=== PATIENT | male | born 1985 | race Caucasian/White ===

== ENCOUNTER 2016-10-08 20:18 | Emergency (ER) | payer OTHER ==
[~2016-10-08] VITALS: Ht 189.2 cm; Wt 126.5 kg
[~2016-10-08 20:18] MED LIST: AMPH30TA2 PO
[2016-10-08 20:26] VITALS: TEMP 36.9; Ht 189.2 cm; Wt 126.5 kg
[2016-10-08] MEDS ORDERED: SODIUM CHLORIDE 0.9% 1000ML 1,000 ML IV STA (20:38)
[2016-10-08] MEDS ORDERED: ONDANSETRON INJ 2 MG/ML 2 ML VIAL IV STA (20:38)
[2016-10-08] MEDS ORDERED: AMPH20CA3 PO (20:50)
[2016-10-08 20:56] LABS: HEMATOCRIT 44.9 % (42-52); MEAN CELL VOLUME 81.5 fL (80-100); MEAN CORPUSCULAR HEMOGLOBIN 28.7 pg (25-34); MEAN CORPUSCULAR HGB CONC 35.2 g/dl (32-36); MEAN PLATELET VOLUME 10.2 fL (7.4-10.4); PLATELET COUNT 254 K/uL (130-400); RED BLOOD COUNT 5.51 M/uL (4.7-6.1); WHITE BLOOD COUNT 8.22 K/uL (4.8-10.8)
[2016-10-08] MEDS ORDERED: HYOSCYAMINE SULFATE 0.125 MG SL TAB SL STA (21:08)
[2016-10-08 21:13] LABS: ALT/SGPT 49 U/L (12-78); BLOOD UREA NITROGEN 9 mg/dl (7-18); BUN/CREATININE RATIO 11.1 (10-20); CARBON DIOXIDE 28 mmol/L (21-32); CHLORIDE 103 mmol/L (98-107); CREATININE 0.83 mg/dl (0.60-1.40); GLUCOSE 84 mg/dl (70-99); POTASSIUM 3.4 mmol/L (3.5-5.1); SODIUM 138 mmol/L (136-145)
[2016-10-08 21:14] LABS: CALCIUM 8.6 mg/dl (8.5-10.1)
[2016-10-08 21:16] LABS: ALKALINE PHOSPHATASE 58 U/L (45-117); AST/SGOT 21 U/L (15-37)
[2016-10-08 21:25] LABS: BASO % 0.4 %; BASO ABS # 0.03 K/uL (0-0.2); COMPLETE YES; EOS % 2.8 %; IG% 0.4 %; LYMPH % 30.8 %; LYMPH ABS # 2.53 K/uL (1.2-3.4); MONO % 14.7 %; NEUT % 50.9 %
--- NOTE | 2016-10-08 21:43 | DIAGNOSTIC IMAGING REPORT ---
PA CHEST WITH ABDOMINAL SERIES CLINICAL HISTORY: Generalized abdominal pain. Nausea and vomiting. Diarrhea. FINDINGS: A PA chest radiograph is obtained. No prior studies are available for comparison at the time of dictation. The cardiomediastinal silhouette is unremarkable. The lungs and pleural spaces are clear. No pneumothorax is seen. The bony thorax is grossly intact. Supine and erect abdominal radiograph are correlated with abdominal CT dated 03/02/2009. There is a nonobstructed abdominal bowel gas pattern. No evidence of intraperitoneal free air is seen. Air-fluid levels are noted throughout the colon suggesting diarrheal illness. There are no abnormal abdominal calcifications. The lumbosacral spine and bony pelvis appear intact. IMPRESSION: 1. No active disease in the chest. 2. Nonobstructed abdominal bowel gas pattern. 3. Air-fluid levels are noted throughout the colon. This suggests a diarrheal illness. Clinical correlation will be required. Electronically signed by: Driss Nelson M.D. 10/08/2016 9:40 PM Dictated Date/Time: 10/08/2016 9:38 PM
[2016-10-08 22:51] VITALS: BP 143/95; PULSE 70; O2SAT 98
--- NOTE | 2016-10-09 02:41 | EMERGENCY ROOM VISIT NOTE ---
History Report prepared by Ruslan: Vivi Doe Under the Supervision of: Dr. Elmer Gilbert M.D. First contact with patient: 20:29 Chief Complaint: FLU LIKE SX Stated Complaint: STOMACH FLU, FOOD POISONING, ABD PAIN, VOMITING History of Present Illness The patient is a 31 year old male who presents to the Emergency Room with complaints of worsening flu like symptoms beginning 3 days prior to arrival. The patient states that he has been experiencing vomiting, diarrhea, nausea and abdominal pain. He states that he has vomited 4 times today and many more times yesterday. He does note a small amount of blood in the vomit but only after vomiting multiple times. Today he has experiencing at least 20 episodes of diarrhea that is watery and loose. No blood in his stools. The patient describes his abdominal pain as a cramping in the upper abdomen. He notes that bowel movements cause a cramping pain in his abdomen. He was seen at [facility] yesterday and was given Zofran. His last dosage was this morning and he does note that his vomiting has improved. The patient states that over the weekend he was with his family and 7 on a 10 family members had similar symptoms. He denies fever, recent foreign traveling, or recent antibiotic use. 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 A total of 10 systems reviewed and were otherwise negative. Past Medical & Surgical Medical Problems: (1) Asthma Surgical Problems: (1) S/P appendectomy Family History Diabetes mellitus Hypertension Social History Smoking Status: Never Smoker Smokeless Tobacco Use: No Alcohol Use: none Housing Status: lives with family Occupation Status: employed Current/Historical Medications Scheduled Amphetamine-Dextroamphetamine 20MG (Adderall Xr 20MG), 20 MG PO BID Allergies Coded Allergies: No Known Allergies (Verified , 05/23/16) Physical Exam Vital Signs Date Time Temp Pulse Resp B/P Pulse Ox O2 Delivery O2 Flow Rate FiO2 10/08/16 22:51 70 18 143/95 98 Room Air 10/08/16 21:24 76 16 179/90 97 Room Air 10/08/16 20:26 36.9 87 19 159/95 97 Room Air Physical Exam Constitutional: Vital signs reviewed. Eyes: Pupils are equal round reactive to light. Conjunctiva are noninjected. ENT: Pharynx is clear without erythema or exudate. Mucous membranes are dry. Neck supple without meningeal signs. Respiratory: Clear to auscultation bilaterally. Breath sounds are equal bilaterally. Cardiovascular: Regular rate and rhythm. No rubs or gallops. GI: Soft, nondistended. Mild diffuse tenderness with no guarding. Bowel sounds are present. Musculoskeletal: No peripheral edema. No lower extremity tenderness. Integumentary: No cyanosis. Neurological: The patient is awake and alert. No focal deficits. Psychiatric: Normal affect. Medical Decision & Procedures ER Provider Diagnostic Interpretation: X-ray results as stated below per interpretation by me and the radiologist: PA CHEST WITH ABDOMINAL SERIES CLINICAL HISTORY: Generalized abdominal pain. Nausea and vomiting. Diarrhea. FINDINGS: A PA chest radiograph is obtained. No prior studies are available for comparison at the time of dictation. The cardiomediastinal silhouette is unremarkable. The lungs and pleural spaces are clear. No pneumothorax is seen. The bony thorax is grossly intact. Supine and erect abdominal radiograph are correlated with abdominal CT dated 03/02/2009. There is a nonobstructed abdominal bowel gas pattern. No evidence of intraperitoneal free air is seen. Air-fluid levels are noted throughout the colon suggesting diarrheal illness. There are no abnormal abdominal calcifications. The lumbosacral spine and bony pelvis appear intact. IMPRESSION: 1. No active disease in the chest. 2. Nonobstructed abdominal bowel gas pattern. 3. Air-fluid levels are noted throughout the colon. This suggests a diarrheal illness. Clinical correlation will be required. Electronically signed by: Driss Nelson M.D. 10/08/2016 9:40 PM Dictated Date/Time: 10/08/2016 9:38 PM Laboratory Results 10/08/16 20:42 Red Blood Count 5.51, Mean Corpuscular Volume 81.5, Mean Corpuscular Hemoglobin 28.7, Mean Corpuscular Hemoglobin Concent 35.2, Mean Platelet Volume 10.2, Neutrophils (%) (Auto) 50.9, Lymphocytes (%) (Auto) 30.8, Monocytes (%) (Auto) 14.7, Eosinophils (%) (Auto) 2.8, Basophils (%) (Auto) 0.4, Neutrophils # (Auto ) 4.19, Lymphocytes # (Auto) 2.53, Monocytes # (Auto) 1.21, Eosinophils # (Auto ) 0.23, Basophils # (Auto) 0.03 10/08/16 20:42 Test 10/08/16 20:42 White Blood Count 8.22 K/uL (4.8-10.8) Red Blood Count 5.51 M/uL (4.7-6.1) Hemoglobin 15.8 g/dL (14.0-18.0) Hematocrit 44.9 % (42-52) Mean Corpuscular Volume 81.5 fL (80-100) Mean Corpuscular Hemoglobin 28.7 pg (25-34) Mean Corpuscular Hemoglobin Concent 35.2 g/dl (32-36) Platelet Count 254 K/uL (130-400) Mean Platelet Volume 10.2 fL (7.4-10.4) Neutrophils (%) (Auto) 50.9 % Lymphocytes (%) (Auto) 30.8 % Monocytes (%) (Auto) 14.7 % Eosinophils (%) (Auto) 2.8 % Basophils (%) (Auto) 0.4 % Neutrophils # (Auto) 4.19 K/uL (1.4-6.5) Lymphocytes # (Auto) 2.53 K/uL (1.2-3.4) Monocytes # (Auto) 1.21 K/uL (0.11-0.59) Eosinophils # (Auto) 0.23 K/uL (0-0.5) Basophils # (Auto) 0.03 K/uL (0-0.2) RDW Standard Deviation 39.6 fL (36.4-46.3) RDW Coefficient of Variation 13.2 % (11.5-14.5) Immature Granulocyte % (Auto) 0.4 % Immature Granulocyte # (Auto) 0.03 K/uL (0.00-0.02) Red Blood Cell Morphology Unremarkable Anion Gap 7.0 mmol/L (3-11) Est Creatinine Clear Calc Drug Dose 186.8 ml/min Estimated GFR () 137.8 Estimated GFR (Non- 118.9 BUN/Creatinine Ratio 11.1 (10-20) Calcium Level 8.6 mg/dl (8.5-10.1) Total Bilirubin 0.5 mg/dl (0.2-1) Direct Bilirubin < 0.1 mg/dl (0-0.2) Aspartate Amino Transf (AST/SGOT) 21 U/L (15-37) Alanine Aminotransferase (ALT/SGPT) 49 U/L (12-78) Alkaline Phosphatase 58 U/L (45-117) Total Protein 7.2 gm/dl (6.4-8.2) Albumin 3.6 gm/dl (3.4-5.0) Lipase 68 U/L (73-393) Laboratory results as reviewed by me. Medications Administered Medications (Trade) Dose Ordered Sig/Thomas Route Start Time Stop Time Status Last Admin Dose Admin Sodium Chloride (Nss 1000ml) 1,000 ml @ 999 mls/hr Q1H1M STAT IV 10/08/16 20:38 10/08/16 21:38 DC 10/08/16 20:43 999 MLS/HR Ondansetron HCl (Zofran Inj) 4 mg NOW STAT IV 10/08/16 20:38 10/08/16 20:40 DC 10/08/16 20:43 4 MG Hyoscyamine Sulfate (Levsin Tab) 0.125 mg NOW STAT SL 10/08/16 21:08 10/08/16 21:09 DC 10/08/16 21:47 0.125 MG ED Course 2031: The patient was evaluated in room A3. A complete history and physical exam was performed. 2037: Zofran Inj 4 mg IV, Sodium Chloride 1,000 ml @ 999 mls/hr IV. 2107: Levsin Tab 0.125 mg SL. 6: I reevaluated the patient and he is feeling better. 2235: I discussed the patient's test results with him. 0: Upon reevaluation, the patient appeared to have improvement of his symptoms. I discussed tonight's findings with him. He verbalized agreement of the treatment plan. He was discharged home. Medical Decision This is a 31-year-old male who presents with vomiting and diarrhea. Differential diagnosis includes food borne illness, gastroenteritis, dehydration , metabolic derangement, C. difficile infection. I did perform a limited focused review of portions of the patient's old chart on the electronic medical record. The patient has had no recent pertinent visits to this hospital. I did evaluate the patient as noted above. Patient is presenting with vomiting and diarrhea. He does have some diffuse abdominal tenderness but no rebound tenderness. His family members have had similar illnesses as well. IV access was established. I did treat the patient with Zofran and normal saline IV. He was given Levsin orally. I did order a stool culture which is pending. C. difficile antigen testing is negative. I did order and review the patient's blood work as noted in the electronic medical record. His white blood cell count is not elevated. Electrolytes are unremarkable. I did reassess the patient. He is feeling slightly better. I did discuss the test results with the patient and his father. I did recommend close follow up with his doctor. He was given Zofran by the urgent care center he had seen and so he was discharged in good condition and will continue Zofran as needed and hydration. Impression Primary Impression: Upper abdominal pain Additional Impressions: Vomiting and diarrhea Dehydration Scribe Attestation The scribe's documentation has been prepared under my direct and personally reviewed by me in its entirety. I confirm that the note above accurately reflects all work, treatment, procedures, and medical decision making performed by me. Departure Information Dispostion Home / Self-Care Referrals Effie Munson M.D. (PCP) Forms HOME CARE DOCUMENTATION FORM, IMPORTANT VISIT INFORMATION, Work Instructions Patient Instructions ED Vomiting Diarrhea Nonspecific Ad, My [facility] Additional Instructions You have been examined and treated today on an emergency basis only. This is not a substitute for, or an effort to provide, complete comprehensive medical care. It is impossible to recognize and treat all injuries or illnesses in a single emergency department visit. It is therefore important that you follow up closely with your physician. Call as soon as possible for an appointment. Return for worsening symptoms or if you develop fever or any other concerning symptoms. Problem Qualifiers
== END 2016-10-08 22:52 | disposition home or self-care (01) ==
LOC: C.EDB 20:20 → C.EDA 22:52
DX: R10.10 Upper abdominal pain, unspecified (principal); R11.10 Vomiting, unspecified; R19.7 Diarrhea, unspecified; E86.0 Dehydration; J45.909 Unspecified asthma, uncomplicated; Z83.3 Family history of diabetes mellitus; Z82.49 Family history of ischemic heart disease and other diseases of the circulatory system; Z79.899 Other long term (current) drug therapy

== ENCOUNTER → 2018-02-10 | Outpatient (CLI) | payer OTHER ==
[~2018-02-10] MED LIST changes: +AMPH20CA3 PO; -AMPH30TA2 PO
--- NOTE | 2018-02-10 10:02 | DIAGNOSTIC IMAGING REPORT ---
CT LUMBAR SPINE WITHOUT CT DOSE: 721.74 mGy.cm CLINICAL HISTORY: Persistent low back pain TECHNIQUE: Helical images were acquired in transverse plane. Reformatted sagittal and coronal images were reviewed. A dose lowering technique was utilized adhering to the principles of ALARA. CONTRAST: No contrast was administered COMPARISON STUDY: Conventional radiographic study dated 11/04/2017 FINDINGS: L1-2 level: There is no evidence of significant disc bulge or focal herniation. There is no evidence of spinal or foraminal stenosis. L2-3 level: There is a mild circumferential disc bulge. There is very minimal spinal canal narrowing. There is no significant foraminal stenosis L3-4 level: There is a mild circumferential disc bulge. There is a slight triangle configuration of the thecal sac. There is no significant foraminal narrowing. L4-5 level: There is a minor circumferential disc bulge present. There is no significant spinal or foraminal stenosis L5-S1 level: There is a minimal grade 1 spondylolisthesis of L5 on S1. There is a small broad-based central disc protrusion. There is no significant spinal or foraminal stenosis. No acute fractures or traumatic subluxations are visualized. No destructive lesions are evident. IMPRESSION: 1. No fractures or subluxations identified 2. Minor multilevel disc bulges. 3. Minimal grade 1 spondylolisthesis of L5 and S1. Very small broad-based central disc protrusion at the L5-S1 level. 4. No evidence of high-grade spinal stenosis Electronically signed by: Khari Castrejon M.D. 02/10/2018 10:01 AM Dictated Date/Time: 02/10/2018 9:55 AM
== END | disposition home or self-care (01) ==
LOC: C.CTS 09:41
PROVIDERS: ATTEND Orthopaedic Surgery Orthopaedic Surgery of the Spine
DX: M43.06 Spondylolysis, lumbar region (principal)